=== PATIENT | female | born 1990 | race Hispanic/Latino ===

== ENCOUNTER 2021-07-19 23:34 | Emergency (ER) | payer MEDICAID, OTHER ==
[~2021-07-19] VITALS: Ht 154.9 cm; Wt 117.9 kg
[2021-07-20] MEDS ORDERED: SOLU-MEDROL 125MG VIAL IVP ONE (01:00)
[2021-07-20] MEDS ORDERED: IPRATROPIUM/ALBUTEROL SULFATE 3 ML SOLUTION IH ONE (01:00)
[2021-07-20] MEDS ORDERED: ALBUTEROL 0.083% 2.5 MG/3 ML INH IH ONE (02:30)
[2021-07-20] MEDS ORDERED: AUD IH (05:02)
[2021-07-20] MEDS ORDERED: ALBU8.5H8 IH (05:02)
[2021-07-20] MEDS ORDERED: PRED20TA3 PO (05:02)
[2021-07-20 05:21] VITALS: BP 124/64
== END 2021-07-20 05:22 | disposition home or self-care (01) ==
LOC: EDH 23:34
DX: J45.901 Unspecified asthma with (acute) exacerbation (principal); J45.20 Mild intermittent asthma, uncomplicated; J06.9 Acute upper respiratory infection, unspecified; Z20.822 Contact with and (suspected) exposure to COVID-19; Z68.41 Body mass index [BMI] 40.0-44.9, adult; Z79.52 Long term (current) use of systemic steroids
CPT/HCPCS: 71046; 81025; 87635; 87804 ×2; 93005; 94640 ×2; 96374; 99285; C9803; J2930